=== PATIENT | female | born 1955 | race Caucasian/White ===

== ENCOUNTER 2016-08-12 05:19 | Day surgery (SDC) | payer BC ==
[2016-08-09 20:34] LABS: HEMATOCRIT 40.2 % (36.0-48.0); HEMOGLOBIN 12.8 g/dL (12.0-16.0)
--- NOTE | ~2016-08-12 | OP ---
Record Of Operation [facility] [address] [place]. [address] NAME: CLARIBEL TAVAREZ : 55 STATUS : [facility]#: [id number] AGE: 60 ADM/REG DATE : 08/12/16 MR#: [id number] REPORT SERV DATE: 08/12/16 DICTATED BY: STEPAN TURNER DATE: 08/12/16 REPORT STATUS : Draft TRANSCRIBED BY: MODL DATE: 08/12/16 DATE OF PROCEDURE: 08/12/2016 PREOPERATIVE DIAGNOSIS: Left knee severe arthrofibrosis. POSTOPERATIVE DIAGNOSIS: Left knee severe arthrofibrosis. PROCEDURE: Left knee arthroscopy, debride arthrofibrosis. SURGEON: Janeth Turner M.D. TROUSSEAU CONSULTANT: See chart. DESCRIPTION OF PROCEDURE: The patient was taken to the operative room, placed supine on the table in normal fashion without incident. General anesthetic was induced per the anesthesiologist. The patient was carefully positioned, padded, prepped, and draped in normal sterile fashion. After prophylactic preoperative antibiotics, two standard arthroscopy portals were placed, medial one under direct visualization over spine. Needle examination of the knee revealed abundant arthrofibrotic tissue particularly around the medial patellofemoral area that was meticulously debrided with a shaver and sealed with contour. Then, changed portals and did the same through the opposite including cleaning down in the medial and lateral gutters. The retinacular fibers were released as well. Before and after pictures were taken. Instruments were removed. Wounds were closed and dressed sterilely. The patient was awakened and taken to the postanesthesia care unit without incident. COMPLICATIONS: None. SPECIMENS: None. BLOOD LOSS: Trace. WTB/MODL Janeth Turner M.D. / [id number] CC: Barbie Bush
[~2016-08-12 05:19] MED LIST: ADVAIR INH; ADVAIR250 INH; COMBIVENT INH; CYMBALTA20 PO; DUONEB INH; EFFEXOR XR150 MG PO; ELIQUIS 5 MG TAB5 MG PO; EPIPEN0.3 IM; FERROUS SULF325 M1 PO; FISH OIL1200 MG PO; GAMMAGARD IV; GAMMAGARD SC; IRON325 MG PO; LEVOTHYROXIN25 MCG PO; LIOR10 PO; LORTAB10 PO; MAGNESIUM PO; MORPHINE PO; MUCINEX PO; MULTIPLE VIT PO; NEUR300 PO; NICODERM C14 MG/24 H TOP; PERCOCET1 TA4 PO; PREDNISONE; PREDNISONE PO; PRILO PO; PSEUDOEPHEDR30 MG PO; REQUIP XL2 MG PO; REQUIP3 PO; SINGULAIR1 PO; VITAMIN B-121000 MC1 SL; VITAMIN C100 MG PO; VITC500 PO; XANAX1 MG PO; XOLAIR SC; ZEGERID1 CAP PO; ZYRTEC ALLGY10 MG PO
== END 2016-08-12 16:23 | disposition home or self-care (01) ==
LOC: SDC 05:19
PROVIDERS: Specialist
PROC: 0SBD4ZZ Excision of Left Knee Joint, Percutaneous Endoscopic Approach (ICD-10-PCS; principal; 2016-08-12 06:45)
DX: M24.662 Ankylosis, left knee (principal); J44.9 Chronic obstructive pulmonary disease, unspecified; G47.33 Obstructive sleep apnea (adult) (pediatric); E66.01 Morbid (severe) obesity due to excess calories; E03.9 Hypothyroidism, unspecified; K58.9 Irritable bowel syndrome, unspecified; M79.7 Fibromyalgia; G25.81 Restless legs syndrome; F41.9 Anxiety disorder, unspecified; F32.9 Major depressive disorder, single episode, unspecified; J45.909 Unspecified asthma, uncomplicated; M81.0 Age-related osteoporosis without current pathological fracture; K21.9 Gastro-esophageal reflux disease without esophagitis; E78.00 Pure hypercholesterolemia, unspecified; D64.9 Anemia, unspecified; Z90.49 Acquired absence of other specified parts of digestive tract; Z68.41 Body mass index [BMI] 40.0-44.9, adult; Z99.89 Dependence on other enabling machines and devices; Z96.653 Presence of artificial knee joint, bilateral; Z88.8 Allergy status to other drugs, medicaments and biological substances; Z90.89 Acquired absence of other organs; Z98.51 Tubal ligation status; Z98.890 Other specified postprocedural states
CPT/HCPCS: 36415; 85014; 85018; 88304; 93005; A9270-GY; J0690; J2250; J2274; J2405; J3010